=== PATIENT | female | born 1985 | race Caucasian/White ===

== ENCOUNTER 2025-08-06 09:06 | Emergency (ER) | payer OTHER ==
[~2025-08-06] VITALS: Ht 167.6 cm; Wt 68.0 kg
[2025-08-06 09:16] VITALS: TEMP 36.7; O2SAT 99
[2025-08-06] MEDS: ACETAMINOPHEN 325MG TABLET PO ONE (09:30)
[2025-08-06 13:59] VITALS: BP 101/48; PULSE 64; RESP 12; O2SAT 100
== END 2025-08-06 14:00 | disposition home or self-care (01) ==
LOC: ER 09:06
DX: S10.93XA Contusion of unspecified part of neck, initial encounter (principal); S20.229A Contusion of unspecified back wall of thorax, initial encounter; Z3A.32 32 weeks gestation of pregnancy; V49.40XA Driver injured in collision with unspecified motor vehicles in traffic accident, initial encounter; Y93.89 Activity, other specified; Y92.410 Unspecified street and highway as the place of occurrence of the external cause; Y99.8 Other external cause status
CPT/HCPCS: 72040; 76815; 99284